=== PATIENT | male | born 1970 | race Asian ===

== ENCOUNTER 2019-10-26 13:37 | Emergency (ER) | payer BC ==
[2019-10-26] MEDS ORDERED: NITROGLYCERIN 0.4 MG TAB SUBL SL ONE (14:58)
[2019-10-26] MEDS ORDERED: SUCRALFATE 1 GM/10 ML ORAL LIQD PO ONE (14:59)
[2019-10-26] MEDS ORDERED: IBUPROFEN 400 MG TAB PO ONE (14:59)
[2019-10-26] MEDS ORDERED: ACETAMINOPHEN 325 MG TAB PO ONE (14:59)
--- NOTE | 2019-10-26 15:00 | Emergency Department Report ---
ED Chest Pain HPI - General Chief Complaint: Chest Pain Stated Complaint: CHEST TIGHTNESS , NUMBNESS LEFT ARM Time Seen by Provider: 10/26/19 14:28 Source: patient, RN notes reviewed Mode of arrival: Ambulatory Limitations: No Limitations - History of Present Illness Initial Comments: The patient is a 49-year-old gentleman, [id number], with no chronic medical conditions that he is aware of, who does not have a local primary care doctor. He does not take any prescription medications. There is no family history of heart disease or pulmonary embolism that he is aware of. He presents to the ER with complaints of left-sided chest pressure, left posterior thoracic pressure, and left forearm numbness. The forearm numbness is nontraumatic, and started 1 week ago. It starts in the left elbow, and moves distally. It is not exertional. It is not related to trauma. There is no extremity weakness. There are no additional neurologic complaints. Last night, he developed left- sided chest pressure, with simultaneous left-sided neck discomfort, and left lateral thorax discomfort. There is no associated vomiting, diaphoresis or shortness of breath. This chest discomfort did not radiate anywhere. It resolved last night. He did not present for emergency medical evaluation last night because he was working. He worked overnight, and came to the ER after finishing his shift. He is not having physical pain at this time. He had as pirin yesterday. Otherwise, no recent aspirin consumption. He denies DVT and pulmonary embolism risk factors. There is currently no complaint of headache, neck pain, chest pain, abdominal pain, shortness of breath, vomiting, diaphoresis, or exertional dyspnea. MD Complaint: chest pain, other -: days(s) Onset: during rest Pain Location: left chest Pain Radiation: none Consistency: now resolved Improves With: nothing Worsens With: nothing Aspirin use within the Past 7 Days: (1) Yes - Related Data On Oral Contraceptives: No Previous Rx's Medication Instructions Recorded Last Taken Type Aspirin 325 mg PO QDAY #30 tablet 10/26/19 Unknown Rx Allergies Allergy/AdvReac Type Severity Reaction Status Date / Time No Known Allergies Allergy Unverified 10/26/19 13:41 Heart Score - HEART Score History: Slightly suspicious EKG: Non-specific Age: 45-65 Risk factors: 1-2 risk factors Troponin: < normal limit HEART Score: 3 - Critical Actions Critical Actions: 4-6 pts:12-16.6% risk of adverse cardiac event. Should be admitted ED Review of Systems ROS: Stated complaint: CHEST TIGHTNESS , NUMBNESS LEFT ARM Other details as noted in HPI Constitutional: denies: diaphoresis, fever Eyes: as per HPI ENT: as per HPI Respiratory: denies: cough, shortness of breath Cardiovascular: chest pain Gastrointestinal: denies: nausea, vomiting Genitourinary: as per HPI Musculoskeletal: as per HPI Skin: as per HPI Neurological: as per HPI, paresthesias Psychiatric: as per HPI Hematological/Lymphatic: as per HPI ED Past Medical Hx - Past Medical History Previous Medical History?: No - Surgical History Past Surgical History?: No - Social History Smoking Status: Current Some Day Smoker Substance Use Type: Alcohol - Medications Home Medications: Home Medications Medication Instructions Recorded Confirmed Last Taken Type Aspirin 325 mg PO QDAY #30 tablet 10/26/19 Unknown Rx ED Physical Exam - General Limitations: No Limitations General appearance: alert, in no apparent distress - Head Head exam: Present: atraumatic, normocephalic - Eye Eye exam: Present: normal appearance, EOMI. Absent: nystagmus - ENT ENT exam: Present: normal exam, normal orophraynx, mucous membranes moist, normal external ear exam - Neck Neck exam: Present: normal inspection, full ROM. Absent: tenderness, meningismus - Respiratory Respiratory exam: Present: normal lung sounds bilaterally. Absent: respiratory distress - Cardiovascular Cardiovascular Exam: Present: regular rate, normal rhythm, normal heart sounds. Absent: bradycardia, tachycardia, irregular rhythm, systolic murmur, diastolic murmur, rubs, gallop - GI/Abdominal GI/Abdominal exam: Present: soft, normal bowel sounds. Absent: distended, tenderness, guarding, rebound, rigid, pulsatile mass - Rectal Rectal exam: Present: deferred - Extremities Exam Extremities exam: Present: normal inspection, full ROM, other (2+ pulses noted in the bilateral upper and lower extremities. There is no palpable cord. negative Homans sign. Muscular compartments are soft. The pelvis is stable.). Absent: pedal edema, calf tenderness - Back Exam Back exam: Present: normal inspection, full ROM. Absent: tenderness, CVA tenderness (R), CVA tenderness (L), paraspinal tenderness, vertebral tenderness - Neurological Exam Neurological exam: Present: alert, oriented X3, normal gait, other (There is no facial droop. The tongue is midline. Extraocular movements are intact bilaterally. There is 5 out of 5 strength in bilateral upper and lower extremities. Sensation is intact to light touch bilateral upper and lower extremities. There is a normal gait.). Absent: motor sensory deficit - Psychiatric Psychiatric exam: Present: normal affect, normal mood - Skin Skin exam: Present: warm, dry, intact, normal color. Absent: rash ED Course Vital Signs 10/26/19 10/26/19 10/26/19 14:30 15:29 15:56 Temperature 98.0 F Pulse Rate 89 91 H 86 Respiratory 10 L 17 Rate Blood Pressure 163/99 Blood Pressure 173/94 161/94 [Left] O2 Sat by Pulse 99 97 Oximetry 10/26/19 17:59 Temperature Pulse Rate 84 Respiratory 15 Rate Blood Pressure Blood Pressure 161/104 [Left] O2 Sat by Pulse 97 Oximetry - Reevaluation(s) Reevaluation #1: 10/26/19 16:02 Differential diagnosis, including but not limited to: GERD, gastritis, hiatal hernia, muscular pain, stable angina, pneumonia, coronary artery disease, pulmonary embolism Assessment and plan: 49-year-old gentleman, who is not currently tachycardic, tachypneic or hypoxic, who endorses no DVT or pulmonary embolism risk factors, with a GCS of 15, equal pulses in the upper and lower extremities, unremarkable x-ray of the chest (unlikely to be aortic disease) with resolved chest discomfort, and 1 week of left forearm numbness. Patient at low risk for major adverse cardiac event as per heart score, and DARIA score. He has no pain or symptoms at this time. Check EKG x2, troponin x2, screening laboratory studies, treat if pain arises, and reassess. Reevaluation #2: 10/26/19 18:00 D-dimer negative. Troponin negative. Laboratory studies unremarkable. EKG unchanged x2. Patient remains symptom-free. Updated patient on results and plan of care. As per this hospital and institutions policy and protocol, given low risk for major adverse cardiac event as per heart score, his contact information is transmitted through secure means through [facility], who should be able to arrange close outpatient follow-up. Explained this to patient Reevaluation #3: 10/26/19 19:42 Troponin negative x2. EKG unchanged x2. Patient resting comfortably for hours, and in no acute distress. He has not endorsed physical pain since I have reevaluated him multiple times. He is suitable to follow-up with an outpatient primary care doctor or machine former to complete an outpatient cardiac risk ratification. DARIA score - Daria Score Age > 65: (0) No Aspirin use within the Past 7 Days: (1) Yes 3 or more CAD Risk Factors: (0) No 2 or more Angina events in past 24 hrs: (0) No Known CAD with more than 50% Stenosis: (0) No Elevated Cardiac Markers: (0) No ST Deviation Greater than 0.5mm: (0) No DARIA Score: 1 ED Medical Decision Making - Lab Data Result diagrams: 10/26/19 16:00 10/26/19 16:00 Vital Signs 10/26/19 10/26/19 10/26/19 14:30 15:29 15:56 Temperature 98.0 F Pulse Rate 89 91 H 86 Respiratory 10 L 17 Rate Blood Pressure 163/99 Blood Pressure 173/94 161/94 [Left] O2 Sat by Pulse 99 97 Oximetry Vital Signs 10/26/19 10/26/19 10/26/19 14:30 15:29 15:56 Temperature 98.0 F Pulse Rate 89 91 H 86 Respiratory 10 L 17 Rate Blood Pressure 163/99 Blood Pressure 173/94 161/94 [Left] O2 Sat by Pulse 99 97 Oximetry Lab Results 10/26/19 10/26/19 10/26/19 Range/Units 16:00 16:00 16:00 WBC 4.7 (4.5-11.0) K/mm3 RBC 4.81 (3.65-5.03) M/mm3 Hgb 14.5 (11.8-15.2) gm/dl Hct 43.3 (35.5-45.6) % MCV 90 (84-94) fl MCH 30 (28-32) pg MCHC 34 (32-34) % RDW 13.3 (13.2-15.2) % Plt Count 157 (140-440) K/mm3 Lymph % (Auto) 27.5 (13.4-35.0) % [place] % (Auto) 6.3 (0.0-7.3) % Eos % (Auto) 1.5 (0.0-4.3) % Baso % (Auto) 0.6 (0.0-1.8) % Lymph # 1.3 (1.2-5.4) K/mm3 [place] # 0.3 (0.0-0.8) K/mm3 Eos # 0.1 (0.0-0.4) K/mm3 Baso # 0.0 (0.0-0.1) K/mm3 Seg Neutrophils % 64.1 (40.0-70.0) % Seg Neutrophils # 3.0 (1.8-7.7) K/mm3 PT 13.5 (12.2-14.9) Sec. INR 1.02 (0.87-1.13) APTT 20.0 L (24.2-36.6) Sec. D-Dimer 135.00 (0-234) ng/mlDDU Sodium 135 L (137-145) mmol/L Potassium 4.5 (3.6-5.0) mmol/L Chloride 96.4 L (98-107) mmol/L Carbon Dioxide 27 (22-30) mmol/L Anion Gap 16 mmol/L BUN 9 (9-20) mg/dL Creatinine 0.6 L (0.8-1.5) mg/dL Estimated GFR > 60 ml/min BUN/Creatinine Ratio 15 % Glucose 282 H (75-100) mg/dL Calcium 9.7 (8.4-10.2) mg/dL Total Bilirubin (0.1-1.2) mg/dL Direct Bilirubin (0-0.2) mg/dL Indirect Bilirubin mg/dL AST (5-40) units/L ALT (7-56) units/L Alkaline Phosphatase (35-129) units/L Troponin T (0.00-0.029) ng/mL Total Protein (6.3-8.2) g/dL Albumin (3.9-5) g/dL Albumin/Globulin Ratio % Lipase (13-60) units/L /24/20 Range/Units 16:00 WBC (4.5-11.0) K/mm3 RBC (3.65-5.03) M/mm3 Hgb (11.8-15.2) gm/dl Hct (35.5-45.6) % MCV (84-94) fl MCH (28-32) pg MCHC (32-34) % RDW (13.2-15.2) % Plt Count (140-440) K/mm3 Lymph % (Auto) (13.4-35.0) % [place] % (Auto) (0.0-7.3) % Eos % (Auto) (0.0-4.3) % Baso % (Auto) (0.0-1.8) % Lymph # (1.2-5.4) K/mm3 [place] # (0.0-0.8) K/mm3 Eos # (0.0-0.4) K/mm3 Baso # (0.0-0.1) K/mm3 Seg Neutrophils % (40.0-70.0) % Seg Neutrophils # (1.8-7.7) K/mm3 PT (12.2-14.9) Sec. INR (0.87-1.13) APTT (24.2-36.6) Sec. D-Dimer (0-234) ng/mlDDU Sodium (137-145) mmol/L Potassium (3.6-5.0) mmol/L Chloride (98-107) mmol/L Carbon Dioxide (22-30) mmol/L Anion Gap mmol/L BUN (9-20) mg/dL Creatinine (0.8-1.5) mg/dL Estimated GFR ml/min BUN/Creatinine Ratio % Glucose (75-100) mg/dL Calcium (8.4-10.2) mg/dL Total Bilirubin 0.60 (0.1-1.2) mg/dL Direct Bilirubin < 0.2 (0-0.2) mg/dL Indirect Bilirubin 0.4 mg/dL AST 7 (5-40) units/L ALT 10 (7-56) units/L Alkaline Phosphatase 85 (35-129) units/L Troponin T < 0.010 (0.00-0.029) ng/mL Total Protein 6.0 L (6.3-8.2) g/dL Albumin 4.0 (3.9-5) g/dL Albumin/Globulin Ratio 2.0 % Lipase 8 L (13-60) units/L - EKG Data -: EKG Interpreted by Mo EKG shows normal: sinus rhythm Rate: normal - EKG Data When compared to previous EKG there are: previous EKG unavailable 10/26/19 16:02 There is no prior EKG available for comparison. Sinus rhythm, left axis deviation, borderline left anterior fascicular block, motion artifact, intervals within normal limits, the EKG is abnormal, there is no prior for comparison, the EKG is not a STEMI - Radiology Data Radiology results: report reviewed, image reviewed CHEST 2 VIEWS INDICATION / CLINICAL INFORMATION: Chest Pain. COMPARISON: None available. FINDINGS: SUPPORT DEVICES: None. HEART / MEDIASTINUM: The heart size and pulmonary vasculature are normal. The aorta is normal in caliber. LUNGS / PLEURA: No significant pulmonary or pleural abnormality. No pneumothorax. ADDITIONAL FINDINGS: No significant additional findings. IMPRESSION: No acute findings. Signer Name: Elfego Nicolas MD Signed: 10/26/2019 2:40 PM Workstation Name: [id number] Critical care attestation.: If time is entered above; I have spent that time in minutes in the direct care of this critically ill patient, excluding procedure time. ED Disposition Clinical Impression: Elevated blood pressure reading, History of chest pain, Arm paresthesia, left Disposition: DC-01 TO HOME OR SELFCARE Is pt being admited?: No Does the pt Need Aspirin: No Condition: Stable Additional Instructions: Rest, avoid heavy lifting, and avoid strenuous physical activities. Recommend weight loss, exercise as tolerated, avoidance of caffeine, energy drinks, sugary drinks, and consumption of plenty of fiber, vegetables, and lean protein. Follow-up with a primary care doctor or machine former within the next 3 to 5 days. Take the aspirin as directed, and avoid consumption of heavy and/or spicy foods. Please return to the emergency room right away with new, worsened or different symptoms, or symptoms not present on the initial emergency room evaluation. Referrals: MALDONADO DE LA TORRE MD [Staff Physician] - 3-5 Days [facility] [Provider Group] - 3-5 Days [facility] [Provider Group] - 3-5 Days [facility] [Provider Group] - 3-5 Days
[2019-10-26] MEDS: FAMOTIDINE 20 MG TAB PO ONE ×3 (15:30→15:32)
[2019-10-26] MEDS: ALUM-MAG HYDROXIDE-SIMETHICONE 200-200-20MG/5ML ORAL LIQD 30 ML PO ONE (15:31)
--- NOTE | 2019-10-26 15:44 | XRay Report ---
CHEST 2 VIEWS INDICATION / CLINICAL INFORMATION: Chest Pain. COMPARISON: None available. FINDINGS: SUPPORT DEVICES: None. HEART / MEDIASTINUM: The heart size and pulmonary vasculature are normal. The aorta is normal in min woody. LUNGS / PLEURA: No significant pulmonary or pleural abnormality. No pneumothorax. ADDITIONAL FINDINGS: No significant additional findings. IMPRESSION: No acute findings. Signer Name: Elfego Nicolas MD Signed: 10/26/2019 3:40 PM Workstation Name: [id number]
[2019-10-26 16:50] LABS: Basophils % (Auto) 0.6 % (0.0-1.8); Eosinophils # (Auto) 0.1 K/mm3 (0.0-0.4); Eosinophils % (Auto) 1.5 % (0.0-4.3); Hematocrit 43.3 % (35.5-45.6); Hemoglobin 14.5 gm/dl (11.8-15.2); Lymphocytes # (Auto) 1.3 K/mm3 (1.2-5.4); Lymphocytes % (Auto) 27.5 % (13.4-35.0); Mean Corpuscular HGB Conc 34 % (32-34); Mean Corpuscular Volume 90 fl (84-94); Monocytes # (Auto) 0.3 K/mm3 (0.0-0.8); Monocytes % (Auto) 6.3 % (0.0-7.3); Platelet Count 157 K/mm3 (140-440); Red Blood Count 4.81 M/mm3 (3.65-5.03); Red Cell Distribution Width 13.3 % (13.2-15.2)
[2019-10-26 17:13] LABS: BUN/Creatinine Ratio 15; Blood Urea Nitrogen 9 mg/dL (9-20); Calcium 9.7 mg/dL (8.4-10.2); Hemolysis Index 3; INR 1.02 (0.87-1.13)
[2019-10-26 17:17] LABS: Alanine Aminotransferase 10 units/L (7-56)
[2019-10-26 17:19] LABS: Bilirubin,Direct < 0.2 mg/dL (0-0.2)
[2019-10-26 22:06] VITALS: BP 147/93
== END 2019-10-26 22:06 | disposition home or self-care (01) ==
LOC: ED 13:37
DX: R07.89 Other chest pain (principal); R20.0 Anesthesia of skin; F17.200 Nicotine dependence, unspecified, uncomplicated; R03.0 Elevated blood-pressure reading, without diagnosis of hypertension
CPT/HCPCS: 36415; 71046; 80048; 80076; 83690; 84484; 85025; 85379; 85610; 85730; 93005; 93010; 99284

== ENCOUNTER 2019-12-31 19:12 | Observation (INO) | payer BC ==
[2019-12-31 20:08] LABS: Basophils % (Auto) 0.9 % (0.0-1.8); Eosinophils # (Auto) 0.1 K/mm3 (0.0-0.4); Hematocrit 45.3 % (35.5-45.6); Hemoglobin 15.4 gm/dl (11.8-15.2); Lymphocytes # (Auto) 1.5 K/mm3 (1.2-5.4); Lymphocytes % (Auto) 36.5 % (13.4-35.0); Mean Corpuscular HGB Conc 34 % (32-34); Mean Corpuscular Volume 91 fl (84-94); Monocytes # (Auto) 0.3 K/mm3 (0.0-0.8); Monocytes % (Auto) 7.8 % (0.0-7.3); Platelet Count 183 K/mm3 (140-440)
[2019-12-31 20:24] LABS: Alanine Aminotransferase 14 units/L (7-56); Albumin 4.4 g/dL (3.9-5); BUN/Creatinine Ratio 17; Blood Urea Nitrogen 12 mg/dL (9-20); Calcium 9.6 mg/dL (8.4-10.2); Hemolysis Index 20
--- NOTE | 2019-12-31 20:25 | Emergency Department Report ---
ED Neuro Deficit HPI - General Chief Complaint: Neuro Symptoms/Deficit Stated Complaint: NUMBNESS LEFT SIDE Time Seen by Provider: 12/31/19 20:19 Source: patient Mode of arrival: Ambulatory Limitations: No Limitations - History of Present Illness Initial Comments: Mr. Hernandez is a 49-year-old male with history of without significant past medical history who presents with sudden onset of left-sided numbness at 6 PM. Patient initially felt left leg numbness. Numbness then involve left face left arm. Sensation has returned. He denies paralysis or trouble with speech. He denies gait disturbance. He has not seen a physician in 5 to 10 years. He was recently evaluated earlier this year for chest pain in the emergency department. He was told to take aspirin for the next 30 days. Mr. Hernandez does smoke tobacco. He drinks a sixpack of beer daily. He drinks a sixpack of beer today. 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 Mother has history of diabetes. Father had a stroke 2 years ago. -: Sudden, This evening (6 PM) Location: left face, left arm, left leg History of same: No Place: home, outdoors Severity: mild Improves With: time Worsens With: none On Anticoagulants: No Context: sudden onset Associated Symptoms: denies other symptoms - Related Data Home Medications: Previous Rx's Medication Instructions Recorded Last Taken Type Aspirin 325 mg PO QDAY #30 tablet 10/26/19 Unknown Rx Allergies/Adverse Reactions: Allergies Allergy/AdvReac Type Severity Reaction Status Date / Time No Known Allergies Allergy Unverified 10/26/19 13:41 ED Review of Systems ROS: Stated complaint: NUMBNESS LEFT SIDE Other details as noted in HPI Comment: All other systems reviewed and negative Constitutional: denies: fever, malaise Respiratory: denies: cough, shortness of breath Cardiovascular: denies: chest pain Psychiatric: depression ED Past Medical Hx - Past Medical History Previous Medical History?: No - Surgical History Past Surgical History?: Yes Additional Surgical History: Back - Social History Smoking Status: Current Some Day Smoker Substance Use Type: Alcohol - Medications Home Medications: Home Medications Medication Instructions Recorded Confirmed Last Taken Type Aspirin 325 mg PO QDAY #30 tablet 10/26/19 Unknown Rx ED Neuro Physical Exam - General Limitations: No Limitations General appearance: alert, in no apparent distress Suspected Stroke: Yes - Head Head exam: Present: atraumatic, normocephalic - Eye Eye exam: Present: normal appearance - ENT ENT exam: Present: mucous membranes moist - Neck Neck exam: Present: normal inspection, full ROM - Respiratory Respiratory exam: Present: normal lung sounds bilaterally. Absent: respiratory distress, wheezes, rales, rhonchi - Cardiovascular Cardiovascular Exam: Present: regular rate, normal rhythm, normal heart sounds. Absent: systolic murmur, diastolic murmur, rubs, gallop - GI/Abdominal GI/Abdominal exam: Present: soft, normal bowel sounds. Absent: distended, tenderness, guarding, rebound - Rectal Rectal exam: Present: deferred - Extremities Exam Extremities exam: Present: normal inspection - Back Exam Back exam: Present: normal inspection - Neurological Exam Neurological exam: Present: alert, oriented X3 - NIHSS Assessment Interval: Baseline 1a. Level of Consciousness: alert/keenly responsive 1b. LOC Questions: answers both correctly 1c. LOC Commands: performs tasks correctly 2. Best Gaze: normal 3. Visual: no visual loss 4. Facial Palsy: normal symmetrical movement 5b. Motor Arm Right: no drift 5a. Motor Arm Left: no drift 6a. Motor Leg Left: no drift 6b. Motor Leg Right: no drift 7. Limb Ataxia: absent 8. Sensory: normal 9. Best Language: no aphasia 10. Dysarthria: normal 11. Extinction/Inattention: no abnormality Total Score: 0 Stroke Severity: No Stroke Symptoms - Psychiatric Psychiatric exam: Present: normal affect, normal mood - Skin Skin exam: Present: warm, dry, intact, normal color. Absent: rash ED Course Vital Signs 12/31/19 12/31/19 12/31/19 19:33 20:12 20:16 Temperature 99.3 F Pulse Rate 116 H 113 H 115 H Respiratory 20 10 L 12 Rate Blood Pressure 165/104 160/96 O2 Sat by Pulse 95 92 96 Oximetry 12/31/19 12/31/19 20:30 20:46 Temperature Pulse Rate 108 H 105 H Respiratory 16 17 Rate Blood Pressure 160/96 140/97 O2 Sat by Pulse 97 96 Oximetry - Lab Data Result diagrams: 12/31/19 19:49 12/31/19 19:49 Lab Results 12/31/19 12/31/19 12/31/19 Range/Units 19:49 19:49 20:22 WBC 4.0 L (4.5-11.0) K/mm3 RBC 5.00 (3.65-5.03) M/mm3 Hgb 15.4 H (11.8-15.2) gm/dl Hct 45.3 (35.5-45.6) % MCV 91 (84-94) fl MCH 31 (28-32) pg MCHC 34 (32-34) % RDW 13.0 L (13.2-15.2) % Plt Count 183 (140-440) K/mm3 Lymph % (Auto) 36.5 H (13.4-35.0) % [place] % (Auto) 7.8 H (0.0-7.3) % Eos % (Auto) 3.0 (0.0-4.3) % Baso % (Auto) 0.9 (0.0-1.8) % Lymph # 1.5 (1.2-5.4) K/mm3 [place] # 0.3 (0.0-0.8) K/mm3 Eos # 0.1 (0.0-0.4) K/mm3 Baso # 0.0 (0.0-0.1) K/mm3 Seg Neutrophils % 51.8 (40.0-70.0) % Seg Neutrophils # 2.1 (1.8-7.7) K/mm3 PT 12.8 (12.2-14.9) Sec. INR 0.95 (0.87-1.13) APTT 25.1 (24.2-36.6) Sec. Thrombin Time 14.3 L (15.1-19.6) Sec. Sodium 136 L (137-145) mmol/L Potassium 4.8 (3.6-5.0) mmol/L Chloride 93.5 L (98-107) mmol/L Carbon Dioxide 28 (22-30) mmol/L Anion Gap 19 mmol/L BUN 12 (9-20) mg/dL Creatinine 0.7 L (0.8-1.5) mg/dL Estimated GFR > 60 ml/min BUN/Creatinine Ratio 17 % Glucose 447 H (75-100) mg/dL Calcium 9.6 (8.4-10.2) mg/dL Total Bilirubin 0.30 (0.1-1.2) mg/dL AST 12 (5-40) units/L ALT 14 (7-56) units/L Alkaline Phosphatase 99 (35-129) units/L Troponin T (0.00-0.029) ng/mL Total Protein 6.6 (6.3-8.2) g/dL Albumin 4.4 (3.9-5) g/dL Albumin/Globulin Ratio 2.0 % Plasma/Serum Alcohol (0-0.07) % 12/31/19 12/31/19 Range/Units 20:22 20:22 WBC (4.5-11.0) K/mm3 RBC (3.65-5.03) M/mm3 Hgb (11.8-15.2) gm/dl Hct (35.5-45.6) % MCV (84-94) fl MCH (28-32) pg MCHC (32-34) % RDW (13.2-15.2) % Plt Count (140-440) K/mm3 Lymph % (Auto) (13.4-35.0) % [place] % (Auto) (0.0-7.3) % Eos % (Auto) (0.0-4.3) % Baso % (Auto) (0.0-1.8) % Lymph # (1.2-5.4) K/mm3 [place] # (0.0-0.8) K/mm3 Eos # (0.0-0.4) K/mm3 Baso # (0.0-0.1) K/mm3 Seg Neutrophils % (40.0-70.0) % Seg Neutrophils # (1.8-7.7) K/mm3 PT (12.2-14.9) Sec. INR (0.87-1.13) APTT (24.2-36.6) Sec. Thrombin Time (15.1-19.6) Sec. Sodium (137-145) mmol/L Potassium (3.6-5.0) mmol/L Chloride (98-107) mmol/L Carbon Dioxide (22-30) mmol/L Anion Gap mmol/L BUN (9-20) mg/dL Creatinine (0.8-1.5) mg/dL Estimated GFR ml/min BUN/Creatinine Ratio % Glucose (75-100) mg/dL Calcium (8.4-10.2) mg/dL Total Bilirubin (0.1-1.2) mg/dL AST (5-40) units/L ALT (7-56) units/L Alkaline Phosphatase (35-129) units/L Troponin T < 0.010 (0.00-0.029) ng/mL Total Protein (6.3-8.2) g/dL Albumin (3.9-5) g/dL Albumin/Globulin Ratio % Plasma/Serum Alcohol < 0.01 (0-0.07) % Laboratory Results - last 24 hr 12/31/19 12/31/19 12/31/19 19:49 19:49 20:22 WBC 4.0 L RBC 5.00 Hgb 15.4 H Hct 45.3 MCV 91 MCH 31 MCHC 34 RDW 13.0 L Plt Count 183 Lymph % (Auto) 36.5 H [place] % (Auto) 7.8 H Eos % (Auto) 3.0 Baso % (Auto) 0.9 Lymph # 1.5 [place] # 0.3 Eos # 0.1 Baso # 0.0 Seg Neutrophils % 51.8 Seg Neutrophils # 2.1 PT 12.8 INR 0.95 APTT 25.1 Thrombin Time 14.3 L Sodium 136 L Potassium 4.8 Chloride 93.5 L Carbon Dioxide 28 Anion Gap 19 BUN 12 Creatinine 0.7 L Estimated GFR > 60 BUN/Creatinine Ratio 17 Glucose 447 H Calcium 9.6 Total Bilirubin 0.30 AST 12 ALT 14 Alkaline Phosphatase 99 Troponin T Total Protein 6.6 Albumin 4.4 Albumin/Globulin Ratio 2.0 Plasma/Serum Alcohol 12/31/19 12/31/19 20:22 20:22 WBC RBC Hgb Hct MCV MCH MCHC RDW Plt Count Lymph % (Auto) [place] % (Auto) Eos % (Auto) Baso % (Auto) Lymph # [place] # Eos # Baso # Seg Neutrophils % Seg Neutrophils # PT INR APTT Thrombin Time Sodium Potassium Chloride Carbon Dioxide Anion Gap BUN Creatinine Estimated GFR BUN/Creatinine Ratio Glucose Calcium Total Bilirubin AST ALT Alkaline Phosphatase Troponin T < 0.010 Total Protein Albumin Albumin/Globulin Ratio Plasma/Serum Alcohol < 0.01 - EKG Data EKG shows normal: sinus rhythm, intervals, ST-T waves Rate: normal Interpretation: other (Inferior Q waves leads III aVF) 12/31/19 20:58 EKG obtained 2049 Normal sinus rhythm rate 100 bpm normal axis normal intervals no ST-T signs ischemia - Radiology Data Radiology results: report reviewed CT head: No acute findings AP portable chest: No acute findings - Medical Decision Making TIA: Last known normal 6 PM. TPA not indicated due to rapidly resolve symptoms. Ms. Hernandez will be admitted to the hospitalist service. Aspirin initiated in the emergency department. CBC chemistry PT blood alcohol level all within normal limits. Critical care attestation.: If time is entered above; I have spent that time in minutes in the direct care of this critically ill patient, excluding procedure time. ED Disposition Clinical Impression: Transient ischemic attack Disposition: DC09 OP ADMIT IP TO THIS HOSP Is pt being admited?: Yes Does the pt Need Aspirin: No Condition: Stable
--- NOTE | 2019-12-31 20:49 | XRay Report ---
CHEST 1 VIEW INDICATION / CLINICAL INFORMATION: numbness stroke symptoms. COMPARISON: 10/26/2019 FINDINGS: SUPPORT DEVICES: None. HEART / MEDIASTINUM: No significant abnormality. LUNGS / PLEURA: No significant pulmonary or pleural abnormality. No pneumothorax. ADDITIONAL FINDINGS: No significant additional findings. IMPRESSION: 1. No acute findings. Signer Name: Edgardo Mendoza MD Signed: 12/31/2019 8:45 PM Workstation Name: [id number]
[2019-12-31 20:52] LABS: INR 0.95 (0.87-1.13); Partial Thromboplastin Time 25.1 Sec. (24.2-36.6)
[2019-12-31 20:53] LABS: Thrombin Time 14.3 Sec. (15.1-19.6)
--- NOTE | 2019-12-31 21:24 | Cat Scan Report ---
CT HEAD WITHOUT CONTRAST INDICATION / CLINICAL INFORMATION: Stroke symptoms. TECHNIQUE: All CT scans at this location are performed using CT dose reduction for ALARA by means of automated e xposure control. COMPARISON: None available. FINDINGS: HEMORRHAGE: No evidence of intracranial hemorrhage or extra-axial fluid collection. EXTRA-AXIAL SPACES: Cortical sulci, sylvian fissures and basilar cisterns have an unremarkable appear ance. VENTRICULAR SYSTEM: The ventricular system is of normal size and configuration. CEREBRAL PARENCHYMA: No areas of abnormal brain parenchymal attenuation are identified. There is no i ndication of recent infarction. MIDLINE SHIFT OR HERNIATION: There is no mass effect. CEREBELLUM / BRAINSTEM: Brainstem and cerebellum have an unremarkable appearance. INTRACRANIAL VESSELS:No abnormalities are identified on this noncontrast head CT. ORBITS: visualized portions of the orbits have an unremarkable appearance. SOFT TISSUES of HEAD: No significant abnormality. CALVARIUM: Evaluation of bone windows reveals no abnormalities. PARANASAL SINUSES / MASTOID AIR CELLS: Paranasal sinuses are free from inflammatory mucosal disease. Mastoid air cells are normally pneumatized. ADDITIONAL FINDINGS: None. IMPRESSION: 1. No intracranial abnormality on head CT without contrast.. Signer Name: Georgi Jimenez MD Signed: 12/31/2019 9:20 PM Workstation Name: [id number]
[2019-12-31] MEDS ORDERED: ASPIRIN 81 MG TAB CHEW PO ONE (21:57)
[2019-12-31] MEDS ORDERED: ONDANSETRON 4 MG/2 ML INJ IV PRN ×2 (22:39)
[2019-12-31] MEDS ORDERED: MAGNESIUM HYDROXIDE (MOM) ORAL LIQD UDC PO PRN ×2 (22:39)
[2019-12-31] MEDS ORDERED: ACETAMINOPHEN 325 MG TAB PO PRN ×2 (22:39)
[2019-12-31] MEDS ORDERED: PROMETHAZINE 25 MG RECT SUPP PR PRN (22:39)
[2019-12-31] MEDS ORDERED: METOCLOPRAMIDE 10 MG TAB PO PRN (22:39)
[2019-12-31 22:47] LABS: Bilirubin,Urine NEG (Negative); Blood,Urine NEG (Negative); Color,Urine Straw (Yellow); Protein,Urine <15 mg/dL mg/dL (Negative); Urobilinogen,Urine < 2.0 mg/dL (<2.0)
[2019-12-31 22:48] LABS: Amphetamine Screen,Urine PRESUMPTIVE NEGATIVE; Benzodiazepines Screen,Urine PRESUMPTIVE NEGATIVE; Cannabinoid Screen,Urine PRESUMPTIVE NEGATIVE; Cocaine Screen,Urine PRESUMPTIVE NEGATIVE; Methadone Screen,Urine PRESUMPTIVE NEGATIVE; Opiate Screen,Urine PRESUMPTIVE NEGATIVE
--- NOTE | 2019-12-31 22:53 | History and Physical Report ---
History of Present Illness Date of examination: 12/31/19 Date of admission: 12/31/19 21:58 Chief complaint: Left sided weakness and numbness History of present illness: 49-year-old male with no significant past medical history presents to the emergency room today complaining of left-sided numbness which started a few hours prior to reporting to the emergency room. Numbness and tingling was said to have started on the left leg but later started having similar feelings on the left upper extremity and left side of his face. He denies any headache or dizziness, denies any difficulty with speech and denies any difficulty with his gait.. He denies any chest pain or shortness of breath. Patient has not seen a primary care physician in over 5 years however he was seen earlier in the year in the emergency room for chest pain I was encouraged to start on a daily aspirin for the next 30 days. Work-up in the emergency room was unremarkable except for hyperglycemia. Patient however denies being diabetic. He has a family history of diabetes mellitus. Past History Past Medical History: No medical history Past Surgical History: Other (Back Surtgery) Social history: smoking (Occasional smoking), alcohol abuse (Occasional alcohol) Family history: no significant family history, diabetes (Mother had D/mellitus), stroke (Father had stroke) Medications and Allergies Allergies Allergy/AdvReac Type Severity Reaction Status Date / Time No Known Allergies Allergy Unverified 10/26/19 13:41 Home Medications Medication Instructions Recorded Confirmed Last Taken Type Aspirin 325 mg PO QDAY #30 tablet 10/26/19 Unknown Rx Review of Systems Constitutional: no fever, no chills Cardiovascular: no chest pain, no palpitations Respiratory: no cough, no shortness of breath Gastrointestinal: no abdominal pain, no nausea, no vomiting, no diarrhea Genitourinary Male: no dysuria, no hematuria, no flank pain Musculoskeletal: no neck pain, no low back pain Integumentary: no rash, no pruritis Neurological: no headaches, no confusion Psychiatric: no anxiety, no depression Exam - Constitutional Vitals: Temp Pulse Resp BP Pulse Ox 99.3 F 96 H 15 137/96 98 12/31/19 19:33 12/31/19 22:16 12/31/19 22:16 12/31/19 22:16 12/31/19 22:16 General appearance: Present: no acute distress, well-nourished - EENT Eyes: Present: PERRL, EOM intact ENT: hearing intact, clear oral mucosa, dentition normal - Neck Neck: Present: supple, normal ROM - Respiratory Respiratory effort: normal Respiratory: bilateral: CTA - Cardiovascular Rhythm: regular Heart Sounds: Present: S1 & S2 - Extremities Extremities: no ischemia, pulses intact, pulses symmetrical, No edema, Full ROM Peripheral Pulses: within normal limits - Abdominal General gastrointestinal: Present: soft, non-tender, non-distended - Integumentary Integumentary: Present: clear, warm, dry - Musculoskeletal Musculoskeletal: strength equal bilaterally - Psychiatric Psychiatric: appropriate mood/affect, intact judgment & insight, cooperative - Neurologic Neurologic: CNII-XII intact, moves all extremities HEART Score - HEART Score Troponin: Troponin T < 0.010 ng/mL (0.00-0.029) 12/31/19 20:22 Results - Labs CBC & Chem 7: 12/31/19 19:49 12/31/19 19:49 Labs: Abnormal lab results 12/31/19 12/31/19 12/31/19 Range/Units 19:49 19:49 20:22 WBC 4.0 L (4.5-11.0) K/mm3 Hgb 15.4 H (11.8-15.2) gm/dl RDW 13.0 L (13.2-15.2) % Lymph % (Auto) 36.5 H (13.4-35.0) % Bell % (Auto) 7.8 H (0.0-7.3) % Thrombin Time 14.3 L (15.1-19.6) Sec. Sodium 136 L (137-145) mmol/L Chloride 93.5 L (98-107) mmol/L Creatinine 0.7 L (0.8-1.5) mg/dL Glucose 447 H (75-100) mg/dL Assessment and Plan - Patient Problems (1) Transient ischemic attack Current Visit: Yes Status: Acute Plan to address problem: Patient admitted and placed on telemetry. Will monitor neurological status. Will place on daily aspirin. We will schedule for carotid Doppler, MRI of the brain. We will request neurology evaluation. (2) Hyperglycemia Current Visit: Yes Status: Acute Plan to address problem: Patient denies being diabetic. Will check hemoglobin A1c. Meanwhile will place patient on sliding scale insulin and also get dietary consult. (3) DVT prophylaxis Current Visit: Yes Status: Acute Plan to address problem: Patient placed on subcutaneous heparin. (4) Full code status Current Visit: Yes Status: Acute
[2020-01-01] MEDS: INSULIN LISPRO 100 UNIT/ML SUB-Q SCH ×4 (01:36→16:00)
[2020-01-01 07:03] LABS: Basophils % (Auto) 0.5 % (0.0-1.8); Eosinophils # (Auto) 0.1 K/mm3 (0.0-0.4); Eosinophils % (Auto) 2.1 % (0.0-4.3); Hematocrit 45.2 % (35.5-45.6); Hemoglobin 15.4 gm/dl (11.8-15.2); Lymphocytes # (Auto) 1.7 K/mm3 (1.2-5.4); Lymphocytes % (Auto) 35.5 % (13.4-35.0); Mean Corpuscular HGB Conc 34 % (32-34); Mean Corpuscular Volume 90 fl (84-94); Monocytes # (Auto) 0.4 K/mm3 (0.0-0.8); Monocytes % (Auto) 7.6 % (0.0-7.3); Platelet Count 187 K/mm3 (140-440); Red Blood Count 5.02 M/mm3 (3.65-5.03)
[2020-01-01 07:16] LABS: INR 0.96 (0.87-1.13)
[2020-01-01 07:33] LABS: BUN/Creatinine Ratio 18; Blood Urea Nitrogen 11 mg/dL (9-20); Calcium 9.7 mg/dL (8.4-10.2); Chol/HDL Ratio 3.61 %; HDL Cholesterol 39 mg/dL (40-59); Hemolysis Index 8; LDL Cholesterol,Direct 95 mg/dL (50-130)
--- NOTE | 2020-01-01 09:30 | Discharge Summary ---
Providers - Providers Date of Admission: 01/01/20 01:23 Attending physician: JULY THOMAS MD 12/31/19 22:39 Consult to Dietitian/Nutrition [CONS] Routine Physician Instructions: Reason For Exam: Reason for Consult: Nutrition Recommendations Reason for Consult: Diet education Consult to Physician [CONS] Routine Comment: Consulting Provider: EDU BAR Physician Instructions: Reason For Exam: TIA R/O CVA Occupational Therapy Evaluate and Treat [CONS] Routine Comment: Reason For Exam: Neuro deficits Physical Therapy Evaluation and Treat [CONS] Routine Comment: Reason For Exam: Neuro deficits 01/01/20 01:44 Consult to Dietitian/Nutrition [CONS] Routine Physician Instructions: Reason For Exam: ELEVATED BLOOD SUGAR. Reason for Consult: Diet education Primary care physician: [employer] Hospitalization Reason for admission: cva Condition: Stable Hospital course: 49-year-old male with no significant past medical history presents to the emergency room today complaining of left-sided numbness which started a few hours prior to reporting to the emergency room. Numbness and tingling was said to have started on the left leg but later started having similar feelings on the left upper extremity and left side of his face. He denies any headache or dizziness, denies any difficulty with speech and denies any difficulty with his gait.. He denies any chest pain or shortness of breath. Patient has not seen a primary care physician in over 5 years however he was seen earlier in the year in the emergency room for chest pain I was encouraged to start on a daily aspirin for the next 30 days. Work-up in the emergency room was unremarkable except for hyperglycemia. Patient however denies being diabetic. He has a family history of diabetes mellitus. MRI showed CVA AND this finding was discussed with the patient. Patient verbalized understanding, reported that the symptoms resolved, He also informs me that he was not compliant with his asa and onlyu Only took ASA for one month and stopped, advised on need to be on ASA for life now. He said he has ASA at home and will take those Start Atorvastatin Start on BP meds- Lisinopril Advised about new diagnosis of DM- Monitor advised to lose weight CVA HTN DIABETES MELLITUS MORBID OBESITY NON COMPLAINT Disposition: TO HOME OR SELFCARE Time spent for discharge: 35 mins Core Measure Documentation - Palliative Care Palliative Care/ Comfort Measures: Not Applicable - Core Measures Any of the following diagnoses?: stroke - Stroke Discharge Requirements Statin for LDL = or >70 mg/dl on DC: Yes Anticoag for atrial fib/atrial flutter: Not Applicable Antithrombotic for ischemic stroke: Yes Exam - Constitutional Vitals: Temp Pulse Resp BP Pulse Ox 98.1 F 92 H 18 150/99 100 01/01/20 08:54 01/01/20 08:54 01/01/20 08:54 01/01/20 08:54 01/01/20 09:01 General appearance: Present: no acute distress, well-nourished - EENT Eyes: Present: PERRL, EOM intact ENT: hearing intact, clear oral mucosa - Neck Neck: Present: supple, normal ROM - Respiratory Respiratory effort: normal Respiratory: bilateral: CTA - Cardiovascular Rhythm: regular Heart Sounds: Present: S1 & S2. Absent: systolic murmur, diastolic murmur - Extremities Extremities: no ischemia, pulses intact, pulses symmetrical, No edema, normal temperature, normal color, Full ROM Peripheral Pulses: within normal limits - Abdominal General gastrointestinal: Present: soft, non-tender, non-distended, normal bowel sounds - Integumentary Integumentary: Present: clear, warm, dry - Musculoskeletal Musculoskeletal: strength equal bilaterally - Psychiatric Psychiatric: appropriate mood/affect, intact judgment & insight, cooperative - Neurologic Neurologic: CNII-XII intact, moves all extremities - Allied Health Allied health notes reviewed: nursing Plan Activity: advance as tolerated Diet: low fat, diabetic Special Instructions: record daily weights, record daily BP diary, record blood sugar diary Follow up with: MARGUERITE SESAY MD [Primary Care Provider] - 7 Days MALDONADO DE LA TORRE MD [Staff Physician] - 7 Days STEFAN VILLA MD [Staff Physician] - 7 Days Forms: Work/School Release Form Prescriptions: AtorvaSTATin [Lipitor] 40 mg PO QHS #30 tablet metFORMIN [Glucophage] 850 mg PO BID #60 tablet lisinopriL [Zestril TAB] 20 mg PO QDAY #30 tablet Other Discharge Orders: Glucometer (Amb) Location: None Selected Glucometer supplies[Amb] Location: None Selected
[2020-01-01] MEDS ORDERED: ASPIRIN 325 MG TAB PO SCH (10:00)
--- NOTE | 2020-01-01 14:06 | Magnetic Resonance Report ---
MRI BRAIN WITHOUT CONTRAST INDICATION / CLINICAL INFORMATION: Graph cerebrovascular accident. Patient reports left-sided numbnes s and paresthesias. TECHNIQUE: Multiplanar, multisequence MR images of the brain were obtained. COMPARISON: Head CT 12/31/2019 FINDINGS: BRAIN / INTRACRANIAL CONTENTS: There is a punctate (4 mm diameter) focus of restricted diffusion in the lateral aspect of the right thalamus. There is a corresponding area of decreased signal intensity on ADC map images. This represe nts a subacute small deep infarction. No additional areas of abnormal brain parenchymal signal intens ity are identified. Ventricles and cortical sulci are normal in size and configuration. There is no mass effect. No evide nce of intracranial hemorrhage or extra-axial fluid collection is seen.. There is no indication of re mote cortical infarction. The brainstem and cerebellum have an unremarkable appearance. CRANIOCERVICAL JUNCTION: No abnormalities are identified at the craniocervical junction. VASCULAR FLOW-VOIDS: Normal flow-voids are present within the major intracranial vessels. ORBITS: The orbits have an unremarkable appearance. SINUSES / MASTOIDS: There is no indication of inflammatory disease in the paranasal sinuses or mastoi d air cells. ADDITIONAL FINDINGS: None. IMPRESSION: 1. 4 mm diameter subacute infarction lateral aspect of right thalamus. Signer Name: Georgi Jimenez MD Signed: 01/01/2020 2:02 PM Workstation Name: [id number]
--- NOTE | 2020-01-01 14:14 | Magnetic Resonance Report ---
MRA HEAD WITHOUT CONTRAST HISTORY: Cerebrovascular accident. Left-sided numbness and paresthesias. COMPARISON: none TECHNIQUE: Routine MRA of the head performed. 3-D/MIP reformats postprocessed. CONTRAST: none FINDINGS: MRA HEAD: Intracranial vertebral arteries: Balanced vertebral arteries both contribute to the basilar artery or igin. Basilar artery: There is an absence of flow related signal between the origins of the superior cerebe llar arteries and posterior cerebral arteries. This may be due to a basilar stenosis or occlusion. Th is is associated with bilateral origin of the posterior cerebral arteries and the decreased marissa iber of the distal basilar artery is likely developmental in etiology based on these findings. Posterior cerebral arteries: Bilaterally symmetrical posterior cerebral arteries are demonstrated. Intracranial internal carotid arteries: No significant abnormality. Anterior cerebral arteries: No significant abnormality. Middle cerebral arteries: No significant abnormality. Additional findings: None. IMPRESSION: 1. Bilateral origin of the posterior cerebral arteries. 2. Marked diminution in caliber of the distal basilar artery between the origins of the superior cere bellar arteries and basilar artery as described above. Signer Name: Georgi Jimenez MD Signed: 01/01/2020 2:10 PM Workstation Name: [id number]
[2020-01-01 15:40] VITALS: BP 158/95
[2020-01-01] MEDS ORDERED: INSULIN GLARGINE 100 UNITS/ML SUB-Q SCH (22:00)
== END 2020-01-01 17:50 | disposition home or self-care (01) ==
LOC: ED 19:12 → 4A 21:58 → UNDOADMOB 21:58 → 4A 01-01 01:23
PROVIDERS: ADMIT Internal Medicine Geriatric Medicine; ATTEND Internal Medicine
DX: G45.9 Transient cerebral ischemic attack, unspecified (principal); R73.9 Hyperglycemia, unspecified; F17.200 Nicotine dependence, unspecified, uncomplicated
CPT/HCPCS: 36415; 70450; 70544; 70551; 71045; 80048; 80053; 80061; 80307; 81001; 82962; 83036; 84484; 85025; 85610; 85670; 85730; 93005; 93306; 96372; 97165; 99285; G0378; 80320; G0480; J1815

== ENCOUNTER 2020-01-03 00:18 | Observation (INO) | payer BC ==
--- NOTE | 2020-01-03 00:59 | Emergency Department Report ---
HPI - General Time Seen by Provider: 01/03/20 00:22 - HPI HPI: This is a 49-year-old male presents to the emergency department with a complaint of left-sided numbness that has been going on for most of the day. The patient was just admitted to this hospital on 12/30 for similar symptoms and was admitted for a transient ischemic attack. Patient had a brain MRI on 12/31 that shows a subacute right thalamic infarct. Patient says that he was feeling better upon discharge home but throughout the day today the patient began having numbness and/or decreased sensation to the left side of his face and body every time he lays down or tries to go to sleep. He denies any headache, vision change, slurred speech, weakness or any other neurological deficits. He has not taken anything for symptoms prior to presentation. Patient has a tobacco smoker and a daily alcohol drinker. ED Past Medical Hx - Past Medical History Hx Congestive Heart Failure: No Hx Diabetes: No Hx Asthma: No Hx COPD: No - Surgical History Additional Surgical History: Back - Social History Smoking Status: Former Smoker - Medications Home Medications: Home Medications Medication Instructions Recorded Confirmed Last Taken Type Aspirin 325 mg PO QDAY #30 tablet 10/26/19 Unknown Rx AtorvaSTATin [Lipitor] 40 mg PO QHS #30 tablet 01/01/20 Unknown Rx lisinopriL [Zestril TAB] 20 mg PO QDAY #30 tablet 01/01/20 Unknown Rx metFORMIN [Glucophage] 850 mg PO BID #60 tablet 01/01/20 Unknown Rx ED Review of Systems ROS: Stated complaint: LT SIDE WEAKNESS Other details as noted in HPI Comment: All other systems reviewed and negative Constitutional: denies: chills, fever Eyes: denies: eye pain, vision change ENT: denies: ear pain, throat pain Respiratory: denies: cough, shortness of breath Cardiovascular: denies: chest pain, palpitations Gastrointestinal: denies: abdominal pain, vomiting Genitourinary: denies: dysuria, discharge Musculoskeletal: denies: back pain, arthralgia Skin: denies: rash, lesions Neurological: numbness. denies: headache, weakness Physical Exam - Physical Exam Physical Exam: GENERAL: The patient is well-developed well-nourished. HENT: Normocephalic. Atraumatic. Patient has moist mucous membranes. EYES: Extraocular motions are intact. Pupils equal reactive to light bilaterally. No nystagmus. NECK: Supple. Trachea is midline. CHEST/LUNGS: Clear to auscultation. There is no respiratory distress noted. HEART/CARDIOVASCULAR: Regular. There is no tachycardia. There is no murmur. ABDOMEN: Abdomen is soft, nontender. Patient has normal bowel sounds. SKIN: Skin is warm and dry. NEURO: The patient is awake, alert, and oriented. The patient is cooperative. There is a left lower extremity drift that does not hit the gurney. There is subjective decrease sensation to the left side of the face and the left leg when compared to the right side. Normal speech. Cranial nerves II through XII grossly intact. No facial asymmetry. MUSCULOSKELETAL: There is no tenderness or deformity. There is no limitation range of motion. There is no evidence of acute injury. ED Medical Decision Making - Lab Data Result diagrams: 01/03/20 00:57 01/03/20 00:57 - Radiology Data Radiology results: report reviewed CT head without contrast INDICATION : Left facial and body numbness. TECHNIQUE: Axial imaging performed from the skull apex through the skull base without the use of contrast. All CT examinations performed at this facility utilize dose modulation, iterative reconstruction or weight-based dosing, when appropriate, to reduce radiation dose to as low as reasonably achievable. COMPARISON: None FINDINGS: No acute intracranial hemorrhage or parenchymal abnormality. Lacunar infarct noted within the right, subacute to chronic. Ventricles are normal in size and appear symmetric. Soft tissues including the orbits appear normal. No acute osseous abnormality. Sinuses and mastoid air cells are clear. IMPRESSION: No acute intracranial abnormality appreciated. Subacute to chronic focal lacunar infarct within the right thalamus. CTA head with intravenous contrast CLINICAL HISTORY: Cerebrovascular accident. Left-sided weakness and numbness. TECHNIQUE: 0.625 mm thick contiguous axial scans were obtained from the skull base to the skull vertex during rapid bolus administration of intravenous contrast material. Multiplanar reconstructions were produced in the coronal and sagittal planes. In addition 3 plane MIP instructions were produced and reviewed for this report. The axial source images and reconstructed images were reviewed for this report. CONTRAST DOSE REPORT: Omnipaque 350: 100 ml administered intravenously. All CT scans at this location are performed using CT dose reduction for ALARA by means of automated exposure control. FINDINGS: Internal carotid arteries:Ba, cavernous, opthalmic, clinoid and supraclinoid segments of the ICAs have an unremarkable appearance. Middle cerebral arteries: Bilaterally symmetrical M1 segments are noted. No abnormalities are seen along the course of the insular or opercular branches of middle cerebral arteries. Anterior cerebral arteries: Symmetrical A1 segments of the anterior cerebral arteries are demonstrated. No abnormalities are seen along the course of the A2 segments and their pericallosal branches. Vertebral arteries: Vertebral arteries are diminutive in size. Both vertebral arteries contribute to the basilar artery origin. Basilar artery:Basilar artery is hy poplastic. This is due in large part due to the presence of origin of both posterior cerebral arteries. Posterior cerebral arteries: origin of the posterior cerebral arteries is noted bilaterally. Hypoplasia or developmental absence of the P1 segments is observed. Posterior cerebral arteries have a normal and symmetrical appearance. Dural sinuses: Dural venous sinuses are well demonstrated on this exam. There is no evidence of dural sinus thrombosis. IMPRESSION: 1. No indication of intracranial stenosis or large vessel occlusion. CTA neck without and with intravenous contrast material CLINICAL HISTORY: left sided weakness/numbness TECHNIQUE: Following acquisition of a timing bolus 0.625 mm thick contiguous axial scans were obtained from aortic arch to the skull base during rapid bolus intravenous contrast infusion. In addition to evaluation of axial source images multiplanar reconstructions were produced and reviewed for this report. 3 plane MIP reconstructions were produced and reviewed. FINDINGS: Thoracic aorta:No abnormalities are identified along the course of the thoracic aorta..The origins of the great vessels have an unremarkable appearance. Brachiocephalic artery, left common carotid artery origin and left subclavian artery all have an unremarkable appearance. Right carotid artery:No abnormalities are seen along the course of the RCCA, at the right carotid bifurcation or along the cervical portions of the JOAQUÍN. Left carotid artery: No abnormalities are noted along the course of the left common carotid artery, at the left carotid bifurcation or along the course of the cervical segments of the LICA. Posterior circulation: Both vertebral arteries are diminutive in size. There is no indication of stenosis along the course of the vertebral arteries. Both vertebral arteries contribute to the basilar artery origin. The degree of stenosis, if any, is determined utilizing NASCET like criteria. In this case there is no indication of hemodynamically significant stenosis at the carotid bifurcations or elsewhere. Evaluation of the nonvascular soft tissue structures reveal no abnormality. There is no indication of cervical lymphadenopathy. No abnormalities are seen along the course of the airway. Visualized portions of t he parotid glands and the submandibular salivary glands have a normal appearance. Thyroid gland has a normal appearance. Evaluation of the lung apices reveals no evidence of lung nodule or infiltrate. Cervical spondylosis is noted. This is most pronounced at the C5-6 level where posterior osteophyte lateralizes to the left contributing to left lateral recess stenosis and mild central canal stenosis. IMPRESSION: 1. No indication of hemodynamically significant stenosis at the carotid bifurcation or elsewhere. - Medical Decision Making This patient presents to the emergency department with the complaint of some left-sided numbness that has been going on throughout the day. On examination he also has a mild left lower extremity drift. A CT scan of the head without contrast shows a subacute right thalamic infarction but no acute process. Labs are mostly unremarkable except for some hyperglycemia but the patient does not appear in diabetic ketoacidosis. A consult was done by the telemedicine neurologist, Dr. Muñiz, who evaluated this patient and gave him a NIH stroke scale of 2. The patient had a had previous resolution of his symptoms prior to discharge from his last visit a few days ago and therefore there is concern that the patient could have an evolution of this previous stroke or possibly a new stroke. The neurologist recommends admission for a repeat MRI. Since the patient does not have any specific last known well time, he is outside of the window for TPA. CT angiography studies were done that did not show any occlusion or thrombus. Vital signs stable throughout her his ED course. Patient has been accepted for admission by the hospitalist, Dr. Gorman. Critical Care Time: No Critical care attestation.: If time is entered above; I have spent that time in minutes in the direct care of this critically ill patient, excluding procedure time. ED Disposition Clinical Impression: Stroke Qualifiers: CVA mechanism: unspecified Qualified Code(s): I63.9 - Cerebral infarction, unsp ecified Disposition: 09 OP ADMIT IP TO THIS HOSP Is pt being admited?: Yes Condition: Serious Time of Disposition: 04:14
[2020-01-03 01:40] LABS: Alanine Aminotransferase 13 units/L (7-56); Albumin 4.2 g/dL (3.9-5); BUN/Creatinine Ratio 18; Blood Urea Nitrogen 11 mg/dL (9-20); Calcium 9.3 mg/dL (8.4-10.2)
--- NOTE | 2020-01-03 01:44 | Cat Scan Report ---
CT head without contrast INDICATION : Left facial and body numbness. TECHNIQUE: Axial imaging performed from the skull apex through the skull base without the use of con trast. All CT examinations performed at this facility utilize dose modulation, iterative reconstruct ion or weight-based dosing, when appropriate, to reduce radiation dose to as low as reasonably achiev able. COMPARISON: None FINDINGS: No acute intracranial hemorrhage or parenchymal abnormality. Lacunar infarct noted within the right, subacute to chronic. Ventricles are normal in size and appear symmetric. Soft tissues in cluding the orbits appear normal. No acute osseous abnormality. Sinuses and mastoid air cells are clear. IMPRESSION: No acute intracranial abnormality appreciated. Subacute to chronic focal lacunar infarct within the right thalamus. Signer Name: Sj Roberts MD Signed: 01/03/2020 1:40 AM Workstation Name: [id number]
[2020-01-03 01:45] LABS: Basophils % (Auto) 0.5 % (0.0-1.8); Eosinophils # (Auto) 0.1 K/mm3 (0.0-0.4); Hematocrit 43.7 % (35.5-45.6); Hemoglobin 14.8 gm/dl (11.8-15.2); Lymphocytes # (Auto) 1.4 K/mm3 (1.2-5.4); Lymphocytes % (Auto) 26.4 % (13.4-35.0); Mean Corpuscular HGB Conc 34 % (32-34); Mean Corpuscular Volume 91 fl (84-94); Monocytes # (Auto) 0.3 K/mm3 (0.0-0.8); Monocytes % (Auto) 5.3 % (0.0-7.3); Platelet Count 164 K/mm3 (140-440); Red Blood Count 4.81 M/mm3 (3.65-5.03); Red Cell Distribution Width 12.9 % (13.2-15.2)
--- NOTE | 2020-01-03 02:31 | Emergency Department Report ---
ED Neuro Deficit HPI - General Chief Complaint: Weakness Stated Complaint: LT SIDE WEAKNESS Time Seen by Provider: 01/03/20 00:22 Source: patient, EMS Mode of arrival: Stretcher Limitations: No Limitations - History of Present Illness Initial Comments: [facility] Tele[facility]urology Consult Services Stat Consult Date of Service: 01/03/2020 01:57:30 Impression: Rule Out Acute Ischemic Stroke Comments/Sign-Out: Patient is a 49 yo male with a recent right thalamic ischemic stroke 12/31/19 with residual right facial and hand paresthesias who p/w recurrence of left sided numbness, transient left leg weakness. MRI brain and MRA brain 12/31 reviewed 4mm subacute right lateral thalamic infarct. 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 No carotid imaging available. Patient has been on ASA since discharge. Concern for possible recurrent stroke, in addition further visualization of possible basilar aa critical stenosis/o cclusion vs congenital variant. Given recent stroke and LNK he is not a candidate for TPA. Rec STAT CTA head and neck Rec repeat MRI brain, if recurrent stroke additional embolic stroke work-up may be required, as well as DAP ASA 325mg in ED. Repeat CTH No ICH Metrics: [facility] Notification Time: 01/03/2020 01:56:06 Stamp Time: 01/03/2020 01:57:30 Callback Response Time: 01/03/2020 01:58:50 Video Start Time: 01/03/2020 02:05:02 Video End Time: 01/03/2020 02:19:52 Our recommendations are outlined below. Recommendations: Antiplatelet Therapy Recommended Imaging Studies: MRI Head Without Contrast Therapies: Physical Therapy, Occupational Therapy, Speech Therapy Assessment When Applicable Disposition: Neurology Follow Up Recommended Sign Out: Discussed with Emergency Department Provider Chief Complaint: left sided numbness History of Present Illness: Patient is a 49 year old Male. Patient is a 49 yo male with a recent right thalamic ischemic stroke 12/31/19 with residual right facial and hand paresthesias who p/w recurrence of left sided numbness, transient left leg weakness. Recurrent symptoms have been present since awakening this AM. He reports that initially symptoms began 12/31/19 after waking up from a nap in the evening at 6pm, with complete left sided numbness. At the time of discharge he had mild left facial and hand tingling. This AM he awoke again with complete left sided numbness. He noticed transient left leg heaviness in the day. Examination: 1A: Level of Consciousness - Alert; keenly responsive + 0 1B: Ask Month and Age - Both Questions Right + 0 1C: Blink Eyes & Squeeze Hands - Performs Both Tasks + 0 2: Test Horizontal Extraocular Movements - Normal + 0 3: Test Visual Gordon - No Visual Loss + 0 4: Test Facial Palsy (Use Grimace if Obtunded) - Normal symmetry + 0 5A: Test Left Arm Motor Drift - No Drift for 10 Seconds + 0 5B: Test Right Arm Motor Drift - No Drift for 10 Seconds + 0 6A: Test Left Leg Motor Drift - Drift, but doesn't hit bed + 1 6B: Test Right Leg Motor Drift - No Drift for 5 Seconds + 0 7: Test Limb Ataxia (FNF/Heel-Rojo) - No Ataxia + 0 8: Test Sensation - Mild-Moderate Loss: Less Sharp/More Dull + 1 9: Test Language/Aphasia - Normal; No aphasia + 0 10: Test Dysarthria - Normal + 0 11: Test Extinction/Inattention - No abnormality + 0 NIHSS Score: 2 Due to the immediate potential for life-threatening deterioration due to underlying acute neurologic illness, I spent 35 minutes providing critical care. This time includes time for face to face visit via telemedicine, review of medical records, imaging studies and discussion of findings with providers, the patient and/or family. Dr Laila Muñiz [facility] Case [id number] - Related Data Home Medications: Previous Rx's Medication Instructions Recorded Last Taken Type Aspirin 325 mg PO QDAY #30 tablet 10/26/19 Unknown Rx AtorvaSTATin [Lipitor] 40 mg PO QHS #30 tablet 01/01/20 Unknown Rx lisinopriL [Zestril TAB] 20 mg PO QDAY #30 tablet 01/01/20 Unknown Rx metFORMIN [Glucophage] 850 mg PO BID #60 tablet 01/01/20 Unknown Rx Allergies/Adverse Reactions: Allergies Allergy/AdvReac Type Severity Reaction Status Date / Time No Known Allergies Allergy Unverified 10/26/19 13:41 ED Review of Systems ROS: Stated complaint: LT SIDE WEAKNESS Other details as noted in HPI Constitutional: denies: chills, fever Eyes: denies: eye pain, vision change ENT: denies: ear pain, throat pain Respiratory: denies: cough, shortness of breath Cardiovascular: denies: chest pain, palpitations Gastrointestinal: denies: abdominal pain, vomiting Genitourinary: denies: dysuria, discharge Musculoskeletal: denies: back pain, arthralgia Skin: denies: rash, lesions Neurological: numbness. denies: headache, weakness ED Past Medical Hx - Past Medical History Hx Congestive Heart Failure: No Hx Diabetes: No Hx Asthma: No Hx COPD: No - Surgical History Additional Surgical History: Back - Social History Smoking Status: Former Smoker - Medications Home Medications: Home Medications Medication Instructions Recorded Confirmed Last Taken Type Aspirin 325 mg PO QDAY #30 tablet 10/26/19 Unknown Rx AtorvaSTATin [Lipitor] 40 mg PO QHS #30 tablet 01/01/20 Unknown Rx lisinopriL [Zestril TAB] 20 mg PO QDAY #30 tablet 01/01/20 Unknown Rx metFORMIN [Glucophage] 850 mg PO BID #60 tablet 01/01/20 Unknown Rx ED Neuro Physical Exam - General Limitations: No Limitations General appearance: alert Suspected Stroke: Yes - NIHSS Assessment Interval: Baseline 1a. Level of Consciousness: alert/keenly responsive 1b. LOC Questions: answers both correctly 1c. LOC Commands: performs tasks correctly 2. Best Gaze: normal 3. Visual: no visual loss 4. Facial Palsy: normal symmetrical movement 5b. Motor Arm Right: no drift 5a. Motor Arm Left: no drift 6a. Motor Leg Left: drift 6b. Motor Leg Right: no drift 7. Limb Ataxia: absent 8. Sensory: mild/moderate sensory loss 9. Best Language: no aphasia 10. Dysarthria: normal 11. Extinction/Inattention: no abnormality Total Score: 2 Stroke Severity: Minor Stroke ED Course Vital Signs 01/03/20 01/03/20 01/03/20 00:38 00:46 00:56 Temperature 98.6 F Pulse Rate 97 H Respiratory 12 16 17 Rate Blood Pressure 140/88 140/88 O2 Sat by Pulse 97 96 100 Oximetry 01/03/20 01/03/20 01:00 01:15 Temperature Pulse Rate 99 H 91 H Respiratory 13 16 Rate Blood Pressure 140/88 140/88 O2 Sat by Pulse 97 Oximetry - Lab Data Result diagrams: 01/03/20 00:57 01/03/20 00:57 Lab Results 01/03/20 01/03/20 01/03/20 Range/Units 00:57 00:57 00:57 WBC 5.2 (4.5-11.0) K/mm3 RBC 4.81 (3.65-5.03) M/mm3 Hgb 14.8 (11.8-15.2) gm/dl Hct 43.7 (35.5-45.6) % MCV 91 (84-94) fl MCH 31 (28-32) pg MCHC 34 (32-34) % RDW 12.9 L (13.2-15.2) % Plt Count 164 (140-440) K/mm3 Lymph % (Auto) 26.4 (13.4-35.0) % [place] % (Auto) 5.3 (0.0-7.3) % Eos % (Auto) 2.0 (0.0-4.3) % Baso % (Auto) 0.5 (0.0-1.8) % Lymph # 1.4 (1.2-5.4) K/mm3 [place] # 0.3 (0.0-0.8) K/mm3 Eos # 0.1 (0.0-0.4) K/mm3 Baso # 0.0 (0.0-0.1) K/mm3 Seg Neutrophils % 65.8 (40.0-70.0) % Seg Neutrophils # 3.4 (1.8-7.7) K/mm3 Sodium 136 L (137-145) mmol/L Potassium 4.7 (3.6-5.0) mmol/L Chloride 97.8 L (98-107) mmol/L Carbon Dioxide 25 (22-30) mmol/L Anion Gap 18 mmol/L BUN 11 (9-20) mg/dL Creatinine 0.6 L (0.8-1.5) mg/dL Estimated GFR > 60 ml/min BUN/Creatinine Ratio 18 % Glucose 285 H (75-100) mg/dL Calcium 9.3 (8.4-10.2) mg/dL Total Bilirubin 0.40 (0.1-1.2) mg/dL AST 8 (5-40) units/L ALT 13 (7-56) units/L Alkaline Phosphatase 93 (35-129) units/L Troponin T < 0.010 (0.00-0.029) ng/mL Total Protein 6.5 (6.3-8.2) g/dL Albumin 4.2 (3.9-5) g/dL Albumin/Globulin Ratio 1.8 % TSH 1.870 (0.270-4.200) mlU/mL Plasma/Serum Alcohol (0-0.07) % 01/03/20 Range/Units 00:57 WBC (4.5-11.0) K/mm3 RBC (3.65-5.03) M/mm3 Hgb (11.8-15.2) gm/dl Hct (35.5-45.6) % MCV (84-94) fl MCH (28-32) pg MCHC (32-34) % RDW (13.2-15.2) % Plt Count (140-440) K/mm3 Lymph % (Auto) (13.4-35.0) % [place] % (Auto) (0.0-7.3) % Eos % (Auto) (0.0-4.3) % Baso % (Auto) (0.0-1.8) % Lymph # (1.2-5.4) K/mm3 [place] # (0.0-0.8) K/mm3 Eos # (0.0-0.4) K/mm3 Baso # (0.0-0.1) K/mm3 Seg Neutrophils % (40.0-70.0) % Seg Neutrophils # (1.8-7.7) K/mm3 Sodium (137-145) mmol/L Potassium (3.6-5.0) mmol/L Chloride (98-107) mmol/L Carbon Dioxide (22-30) mmol/L Anion Gap mmol/L BUN (9-20) mg/dL Creatinine (0.8-1.5) mg/dL Estimated GFR ml/min BUN/Creatinine Ratio % Glucose (75-100) mg/dL Calcium (8.4-10.2) mg/dL Total Bilirubin (0.1-1.2) mg/dL AST (5-40) units/L ALT (7-56) units/L Alkaline Phosphatase (35-129) units/L Troponin T (0.00-0.029) ng/mL Total Protein (6.3-8.2) g/dL Albumin (3.9-5) g/dL Albumin/Globulin Ratio % TSH (0.270-4.200) mlU/mL Plasma/Serum Alcohol < 0.01 (0-0.07) % Critical care attestation.: If time is entered above; I have spent that time in minutes in the direct care of this critically ill patient, excluding procedure time. ED Disposition Clinical Impression: Stroke Disposition: PAT REG,TRIAGED-NO MSE Is pt being admited?: Yes Condition: Stable Referrals: PRIMARY CARE, [Primary Care Provider] - 3-5 Days
--- NOTE | 2020-01-03 03:41 | Cat Scan Report ---
CTA neck without and with intravenous contrast material CLINICAL HISTORY: left sided weakness/numbness TECHNIQUE: Following acquisition of a timing bolus 0.625 mm thick contiguous axial scans were obtained from aort ic arch to the skull base during rapid bolus intravenous contrast infusion. In addition to evaluation of axial source images multiplanar reconstructions were produced and reviewed for this report. 3 forest ne MIP reconstructions were produced and reviewed. FINDINGS: Thoracic aorta:No abnormalities are identified along the course of the thoracic aorta..The origins of the great vessels have an unremarkable appearance. Brachiocephalic artery, left common carotid arter y origin and left subclavian artery all have an unremarkable appearance. Right carotid artery:No abnormalities are seen along the course of the RCCA, at the right carotid bif urcation or along the cervical portions of the JOAQUÍN. Left carotid artery: No abnormalities are noted along the course of the left common carotid artery, a t the left carotid bifurcation or along the course of the cervical segments of the LICA. Posterior circulation: Both vertebral arteries are diminutive in size. There is no indication of sten osis along the course of the vertebral arteries. Both vertebral arteries contribute to the basilar ar jamil origin. The degree of stenosis, if any, is determined utilizing NASCET like criteria. In this c ase there is no indication of hemodynamically significant stenosis at the carotid bifurcations or els ewhere. Evaluation of the nonvascular soft tissue structures reveal no abnormality. There is no indication of cervical lymphadenopathy. No abnormalities are seen along the course of the airway. Visualized porti ons of the parotid glands and the submandibular salivary glands have a normal appearance. Thyroid gla nd has a normal appearance. Evaluation of the lung apices reveals no evidence of lung nodule or infil trate. Cervical spondylosis is noted. This is most pronounced at the C5-6 level where posterior osteophyte l ateralizes to the left contributing to left lateral recess stenosis and mild central canal stenosis. IMPRESSION: 1. No indication of hemodynamically significant stenosis at the carotid bifurcation or elsewhere. Contrast dose report: Omnipaque 350: 100 ml, administered intravenously All CT examinations performed at this facility utilize modulated dose reduction, iterative reconstruc tion or weight-based dosing, as appropriate, to obtain a radiation dose which is as low as can reason ably be achieved. Signer Name: Georgi Jimenez MD Signed: 01/03/2020 3:36 AM Workstation Name: [id number]
--- NOTE | 2020-01-03 03:47 | Cat Scan Report ---
CTA head with intravenous contrast CLINICAL HISTORY: Cerebrovascular accident. Left-sided weakness and numbness. TECHNIQUE: 0.625 mm thick contiguous axial scans were obtained from the skull base to the skull vertex during r apid bolus administration of intravenous contrast material. Multiplanar reconstructions were produced in the coronal and sagittal planes. In addition 3 plane MIP instructions were produced and reviewed for this report. The axial source images and reconstructed images were reviewed for this report. CONTRAST DOSE REPORT: Omnipaque 350: 100 ml administered intravenously. All CT scans at this location are performed using CT dose reduction for ALARA by means of automated e xposure control. FINDINGS: Internal carotid arteries:Ba, cavernous, opthalmic, clinoid and supraclinoid segments of the ICAs have an unremarkable appearance. Middle cerebral arteries: Bilaterally symmetrical M1 segments are noted. No abnormalities are seen al ochoa the course of the insular or opercular branches of middle cerebral arteries. Anterior cerebral arteries: Symmetrical A1 segments of the anterior cerebral arteries are demonstrate d. No abnormalities are seen along the course of the A2 segments and their pericallosal branches. Vertebral arteries: Vertebral arteries are diminutive in size. Both vertebral arteries contribute to the basilar artery origin. 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 This is due in large part due to the presence of origin of both posterior cerebral arteries. Posterior cerebral arteries: origin of the posterior cerebral arteries is noted bilaterally. Hy poplasia or developmental absence of the P1 segments is observed. Posterior cerebral arteries have a normal and symmetrical appearance. Dural sinuses: Dural venous sinuses are well demonstrated on this exam. There is no evidence of dural sinus thrombosis. IMPRESSION: 1. No indication of intracranial stenosis or large vessel occlusion. Signer Name: Georgi Jimenez MD Signed: 01/03/2020 3:42 AM Workstation Name: [id number]
[2020-01-03] MEDS ORDERED: ASPIRIN 81 MG TAB CHEW PO ONE (04:14)
[2020-01-03] MEDS ORDERED: METOCLOPRAMIDE 10 MG TAB PO PRN (04:56)
[2020-01-03] MEDS ORDERED: DEXTROSE 50% IN WATER (25GM) 50 ML SYRINGE IV PRN (04:56)
[2020-01-03] MEDS ORDERED: ACETAMINOPHEN 325 MG TAB PO PRN ×2 (04:56)
[2020-01-03] MEDS ORDERED: PROMETHAZINE 25 MG RECT SUPP PR PRN (04:56)
[2020-01-03] MEDS ORDERED: ONDANSETRON 4 MG/2 ML INJ IV PRN ×2 (04:56)
[2020-01-03] MEDS ORDERED: MAGNESIUM HYDROXIDE (MOM) ORAL LIQD UDC PO PRN (04:56)
--- NOTE | 2020-01-03 05:10 | History and Physical Report ---
History of Present Illness Date of examination: 01/03/20 Date of admission: 01/03/2020 Chief complaint: Left-sided weakness History of present illness: 49-year-old male who was just discharged from this facility less than 48 hours ago presenting to the emergency room today with left-sided weakness and numbness. Symptoms were similar to what he presented with on December 31, 2019. He had an MRI of the brain which showed subacute right thalamic infarct at the time I was feeling better when he was discharged home however he started having numbness and decreased sensation on the left side of face and body. He denies any headaches or dizziness, denies any visual disturbance, no difficulty with swallowing, no difficulty with his speech. Work-up in the emergency room including CT scan of the head still reveals right subacute infarct. Teleneurologist was consulted and recommendation was for patient to have a repeat MRI and also carotid Doppler. CT angiogram of the head and neck did not show any significant findings. Past History Past Medical History: diabetes, hypertension Past Surgical History: Other (Back surgery in the past) Social history: smoking, alcohol abuse (Occasional alcohol intake) Family history: diabetes (Mother had diabetes), stroke (Father had stroke) Medications and Allergies Allergies Allergy/AdvReac Type Severity Reaction Status Date / Time No Known Allergies Allergy Unverified 10/26/19 13:41 Home Medications Medication Instructions Recorded Confirmed Last Taken Type Aspirin 325 mg PO QDAY #30 tablet 10/26/19 Unknown Rx AtorvaSTATin [Lipitor] 40 mg PO QHS #30 tablet 01/01/20 Unknown Rx lisinopriL [Zestril TAB] 20 mg PO QDAY #30 tablet 01/01/20 Unknown Rx metFORMIN [Glucophage] 850 mg PO BID #60 tablet 01/01/20 Unknown Rx Review of Systems Constitutional: no fever, no chills Ears, nose, mouth and throat: no nasal congestion, no sore throat Cardiovascular: no chest pain, no palpitations Respiratory: no cough, no shortness of breath Gastrointestinal: no abdominal pain, no nausea, no vomiting, no diarrhea Genitourinary Male: no dysuria, no hematuria, no flank pain Musculoskeletal: no neck pain, no low back pain Integumentary: no rash, no pruritis Neurological: no headaches, no confusion Psychiatric: no anxiety, no confusion Exam - Constitutional Vitals: Temp Pulse Resp BP Pulse Ox 98.6 F 93 H 24 155/92 99 01/03/20 00:56 01/03/20 03:00 01/03/20 03:00 01/03/20 03:00 01/03/20 03:00 General appearance: Present: no acute distress, well-nourished - EENT Eyes: Present: PERRL, EOM intact ENT: hearing intact, clear oral mucosa, dentition normal - Neck Neck: Present: supple, normal ROM - Respiratory Respiratory effort: normal Respiratory: bilateral: CTA - Cardiovascular Rhythm: regular Heart Sounds: Present: S1 & S2 - Extremities Extremities: no ischemia, pulses intact, pulses symmetrical, No edema, Full ROM Peripheral Pulses: within normal limits - Abdominal General gastrointestinal: Present: soft, non-tender, non-distended, normal bowel sounds - Integumentary Integumentary: Present: clear, warm, dry - Musculoskeletal Musculoskeletal: strength equal bilaterally - Psychiatric Psychiatric: appropriate mood/affect, intact judgment & insight, cooperative - Neurologic Neurologic: CNII-XII intact, moves all extremities HEART Score - HEART Score Troponin: Troponin T < 0.010 ng/mL (0.00-0.029) 01/03/20 00:57 Results - Labs CBC & Chem 7: 01/03/20 00:57 01/03/20 00:57 Labs: Abnormal lab results 01/03/20 01/03/20 Range/Units 00:57 00:57 RDW 12.9 L (13.2-15.2) % Sodium 136 L (137-145) mmol/L Chloride 97.8 L (98-107) mmol/L Creatinine 0.6 L (0.8-1.5) mg/dL Glucose 285 H (75-100) mg/dL Assessment and Plan - Patient Problems (1) Stroke Current Visit: Yes Status: Acute Qualifiers: CVA mechanism: unspecified Qualified Code(s): I63.9 - Cerebral infarction, unspecified Plan to address problem: Patient admitted placed on telemetry. Will monitor neurological status. Patient will be placed on daily aspirin. We will schedule patient for repeat MRI and carotid Doppler. Patient had an echocardiogram during his recent hospital admission. We will request neurology evaluation and recommendation. (2) DVT prophylaxis Current Visit: No Status: Acute Plan to address problem: Patient placed on subcutaneous heparin. (3) Full code status Current Visit: No Status: Acute (4) Hyperglycemia Current Visit: No Status: Acute
[2020-01-03] MEDS: INSULIN LISPRO 100 UNIT/ML SUB-Q SCH ×3 (09:30→17:13)
[2020-01-03] MEDS ORDERED: ASPIRIN 325 MG TAB PO SCH (10:00)
--- NOTE | 2020-01-03 13:12 | Magnetic Resonance Report ---
MRI BRAIN WITHOUT CONTRAST INDICATION / CLINICAL INFORMATION: MAIN: stroke, lT SIDED WEAKNESS AND NUMBNESS. TECHNIQUE: Multisequence, multiplanar images were obtained. COMPARISON: MR brain 01/01/2020 FINDINGS: CEREBRAL and CEREBELLAR HEMISPHERES: Small focus of diffusion restriction in the lateral right thalam us is again identified but appears slightly larger on today's exam. This area of diffusion restrictio n has increased from 4 mm to 8 mm in greatest dimension. No additional areas of diffusion restriction are identified. The remaining brain parenchyma demonstrates normal signal on all sequences. The darling -white interface is well-defined. No evidence for hemorrhage, mass or mass effect. No extra-axial flu id collection. VENTRICLES: Normal in size and configuration for age. VISUALIZED ORBITS: No significant abnormality. VISUALIZED PARANASAL SINUSES: No significant abnormality. ADDITIONAL FINDINGS: None. IMPRESSION: 8 mm focus of subacute ischemia is identified in the right thalamus as described above. This focus ap pears slightly larger than on the previous MR brain dated 01/01/2020. No evidence for hemorrhage. Signer Name: Basilio Parada Jr, MD Signed: 01/03/2020 1:07 PM Workstation Name: [id number]
--- NOTE | 2020-01-03 13:15 | Event Note ---
Date: 01/03/20 Patient seen and reexamined no acute distress noted reports improvement in left upper extremity numbness except in the finger areas. Denies any positional change exacerbating the symptoms. Awaiting for full work-up and repeat neurology evaluation Will continue current treatment at this time.
[2020-01-03] MEDS ORDERED: HEPARIN 5,000 UNIT/1 ML VIAL SUB-Q SCH (14:00)
--- NOTE | 2020-01-03 14:46 | Vascular Lab Report ---
BILATERAL CAROTID DOPPLER ULTRASOUND INDICATION : stroke TECHNIQUE: Grayscale and color Doppler imaging performed through the neck. COMPARISON: None FINDINGS: Right: There is no significant atherosclerotic disease. Peak systolic velocity in the CCA is 89 cm/ s with end-diastolic velocity of 26 cm/s. Peak systolic velocity in the proximal ICA is 98 cm/s with end-diastolic velocity of 27 cm/s. ICA to CCA ratio is less than 2. There is antegrade flow in the E CA and the vertebral artery. Left: There is no significant atherosclerotic disease. Peak systolic velocity in the CCA is 87 cm/s w ith end-diastolic velocity of 26 cm/s. Peak systolic velocity in the proximal ICA is 103 cm/s with en d-diastolic velocity of 35 cm/s. ICA to CCA ratio is less than 2. There is antegrade flow in the ECA and the vertebral artery. IMPRESSION: No hemodynamically significant stenosis by NASCET criteria. Signer Name: Basilio Parada Jr, MD Signed: 01/03/2020 2:42 PM Workstation Name: [id number]
--- NOTE | 2020-01-03 17:55 | Consultation ---
History of Present Illness Consult date: 01/03/20 Reason for Consult: Stroke Chief complaint: Left sided weakness and numbness. History of present illness: Patient is a 49 y/o man w/ a h/o HTN, DM, HLD, and recent stroke w/ residual left sided numbness. Patient was recently admitted on 12/31/19 w/ symptoms of left sided numbness. During that admission, MRI was done and showed that patient had a small right thalamic infarct. Patient was send home, and was taking ASA 81mg daily. His left sided numbness had somewhat improved. However, yesterday morning, he awoke with recurrence of left sided numbness, and also noted LLE weakness. LLE weakness has now resolve, however he continues to c/o left sided numbness. Past History Past Medical History: diabetes, hypertension, other (HLD, h/o stroke) Past Surgical History: Other (Back surgery in the past) Social history: smoking (previous), alcohol abuse (Occasional alcohol intake) Family history: diabetes (Mother had diabetes), stroke (Father had stroke) Medications and Allergies Allergies Allergy/AdvReac Type Severity Reaction Status Date / Time No Known Allergies Allergy Unverified 10/26/19 13:41 Home Medications Medication Instructions Recorded Confirmed Last Taken Type Aspirin 325 mg PO QDAY #30 tablet 10/26/19 Unknown Rx AtorvaSTATin [Lipitor] 40 mg PO QHS #30 tablet 01/01/20 Unknown Rx lisinopriL [Zestril TAB] 20 mg PO QDAY #30 tablet 01/01/20 Unknown Rx metFORMIN [Glucophage] 850 mg PO BID #60 tablet 01/01/20 Unknown Rx Active Meds: Active Medications Acetaminophen (Tylenol) 650 mg PO Q4H PRN PRN Reason: Pain MILD(1-3)/Fever >100.5/[place] Aspirin (Aspirin) 325 mg PO QDAY [facility] Last Admin: 01/03/20 09:21 Dose: 325 mg Documented by: Atorvastatin Calcium (Lipitor) 40 mg PO QHS [facility] Bisacodyl (Dulcolax) 10 mg [place] QDAY PRN PRN Reason: Constipation Dextrose (D50w (25gm) Syringe) 0 ml IV Q30MIN PRN; Protocol PRN Reason: Hypoglycemia Heparin Sodium (Porcine) (Heparin) 5,000 unit SUB-Q Q8HR [facility] Last Admin: 01/03/20 15:58 Dose: 5,000 unit Documented by: Insulin Human Lispro (Humalog) 0 unit SUB-Q ACHS [facility]; Protocol Last Admin: 01/03/20 17:13 Dose: 4 unit Documented by: Magnesium Hydroxide (Milk Of Magnesia) 30 ml PO Q4H PRN PRN Reason: Constipation Metoclopramide HCl (Reglan) 10 mg PO Q6H PRN PRN Reason: Nausea And Vomiting Ondansetron HCl (Zofran) 4 mg IV Q8H PRN PRN Reason: Nausea And Vomiting Promethazine HCl (Phenergan) 25 mg [place] Q6H PRN PRN Reason: Nausea And Vomiting Sodium Chloride (Sodium Chloride Flush Syringe 10 Ml) 10 ml IV PRN PRN PRN Reason: LINE FLUSH Sodium Chloride (Sodium Chloride Flush Syringe 10 Ml) 10 ml IV BID [facility] Last Admin: 01/03/20 09:21 Dose: 10 ml Documented by: Review of Systems All systems: negative Neurological: weakness, numbness Physical Examination - Vital Signs Vital Signs: Vital Signs Resp Pulse Ox 12 97 01/03/20 00:38 01/03/20 00:38 - Physical Exam Narrative exam: Patient is alert, awake, oriented x4, follows complex commands. No dysarthria or aphasia noted. EOMI, VFF, tongue midline, decreased on Lt. face to LT, no facial weakness noted. 5/5 strength in all extremities. Bilaterally intact light touch. Bilaterally intact to FTN and HTS. 2+ reflexes throughout. - Constitutional General appearance: comfortable - EENT EENT: Present: ATNC - Level of Consciousness 1a. Level of Consciousness: alert/keenly responsive - LOC Questions 1b. LOC Questions: answers both correctly - LOC Command 1c. LOC Commands: performs tasks correctly - Best Gaze 2. Best Gaze: normal - Visual 3. Visual: no visual loss - Facial Palsy 4. Facial Palsy: normal symmetrical movement - Motor Arm 5a. Motor Arm Left: no drift 5b. Motor Arm Right: no drift - Motor Leg 6a. Motor Leg Left: no drift 6b. Motor Leg Right: no drift - Limb Ataxia 7. Limb Ataxia: absent - Sensory 8. Sensory: mild/moderate sensory loss - Best Language 9. Best Language: no aphasia - Dysarthria 10. Dysarthria: normal - Extinction and Inattention 11. Extinction/Inattention: no abnormality - Scoring Total Score: 1 Stroke Severity: Minor Stroke Results - Laboratory Findings CBC and BMP: 01/03/20 00:57 01/03/20 00:57 Abnormal Lab Findings: Abnormal Labs 01/03/20 01/03/20 01/03/20 00:57 00:57 09:32 RDW 12.9 L Sodium 136 L Chloride 97.8 L Creatinine 0.6 L Glucose 285 H POC Glucose 291 H 01/03/20 16:30 RDW Sodium Chloride Creatinine Glucose POC Glucose 295 H Assessment and Plan Patient is a 49 y/o man w/ a h/o HTN, DM, HLD, and recent stroke w/ residual left sided numbness, who p/w increased Lt. sided numbness and LLE weakness. Acco rding to the patient's clinical findings, there has been evolution of his previous stroke, as it has somewhat enlarged since previous imaging done during last admission. This may have occurred due to reduction in BP, causing infarct of ischemic penumbra. Plan: 1. Stroke: - MRI brain: Shows evolution of previous infarct in right thalamus, with enlargement in size. - CTA head/neck: B/l mechanical engineering technologist w/ distal basilar stenosis, which may be developmental in etiology due to b/l mechanical engineering technologist. - Echo: EF 60-65%, LA mildly dilated, bubble study negative. -Recommend dual antiplatelet therapy with aspirin 81 mg daily and Plavix 75 mg daily for 30 days, after which Plavix can be stopped. Discussed risks and benefits of dual antiplatelet therapy with patient, and patient agreed to take this. - Cont. statin. LDL goal <70. - Given cryptogenic etiology of stroke, would recommend long-term cardiac mo nitoring with 30-day MCOT or ILR, to be done by cardiology outpatient. - Telemetry monitoring while in house - PT/OT/ST - DVT Ppx: Recommend lovenox 2. Hypertension: - Recommend BP goal of normotension, as it has been >48 hours since symptom onset. - Recommend for patient to follow up with neurology in 3-4 weeks. - Will sign off. Please call with any questions. Thank you for allowing me to take part in the care of this patient. Marlon Goodman MD Neurology This clinical encounter was provided via live telemedicine platform. Consultative service was provided for neurology to support local providers. The Acute Teleneurology team should be contacted with any neurologic worsening or cl inical changes, new test results, or new patient history that is reported to or discovered by the local team following completion of the teleneurology consultation, specifically that which has the potential to impact the consultative recommendations. Patient/Family was informed the Neurology Consult would happen via TeleHealth consult by way of interactive audio and video telecommunications and consented to receiving care in this manner. Due to the potential for life-threatening deterioration due to underlying neurologic illness, and limited resources available for patient care, telemedicine was used as means of patient care. Telemedicine consultation is limited in the extent of physical exam that can be virtually provided. Time spent evaluating patient includes time for face to face visit via telemedicine, review of medical records, imaging studies and discussion of findings with prov iders, the patient and/or family.
--- NOTE | 2020-01-03 19:05 | Discharge Summary ---
Providers - Providers Date of Admission: 01/03/20 04:56 Attending physician: JULY THOMAS MD 01/03/20 04:56 Consult to Dietitian/Nutrition [CONS] Routine Physician Instructions: Reason For Exam: Reason for Consult: Diet education Consult to Physician [CONS] Routine Comment: Consulting Provider: ROSAURA CHAPPELL Physician Instructions: Reason For Exam: CVA Occupational Therapy Evaluate and Treat [CONS] Routine Comment: Reason For Exam: Neuro deficits Physical Therapy Evaluation and Treat [CONS] Routine Comment: Reason For Exam: Neuro deficits Primary care physician: DEDICATED DRIVER Hospitalization Reason for admission: cva Condition: Serious Hospital course: 49-year-old male who was just discharged from this facility less than 48 hours ago presenting to the emergency room today with left-sided weakness and numbness. Symptoms were similar to what he presented with on December 31, 2019. He had an MRI of the brain which showed subacute right thalamic infarct at the time I was feeling better when he was discharged home however he started having numbness and decreased sensation on the left side of face and body. He denies any headaches or dizziness, denies any visual disturbance, no difficulty with swallowing, no difficulty with his speech. Work-up in the emergency room including CT scan of the head still reveals right subacute infarct. Teleneurologist was consulted and recommendation was for patient to have a repeat MRI and also carotid Doppler. CT angiogram of the head and neck did not show any significant findings. Patient is a 49 y/o man w/ a h/o HTN, DM, HLD, and recent stroke w/ residual left sided numbness, who p/w increased Lt. sided numbness and LLE weakness. According to the patient's clinical findings, there has been evolution of his previous stroke, as it has somewhat enlarged since previous imaging done during last admission. This may have occurred due to reduction in BP, causing infarct of ischemic penumbra. ]Assessment and Plan 1. Stroke: - MRI brain: Shows evolution of previous infarct in right thalamus, with enlargement in size. - CTA head/neck: B/l rehabilitation case coordinator w/ distal basilar stenosis, which may be developmental in etiology due to b/l rehabilitation case coordinator. - Echo: EF 60-65%, LA mildly dilated, bubble study negative. -Recommend dual antiplatelet therapy with aspirin 81 mg daily and Plavix 75 mg daily for 30 days, after which Plavix can be stopped. Discussed risks and benefits of dual antiplatelet therapy with patient, and patient agreed to take this. - Cont. statin. LDL goal <70. - Given cryptogenic etiology of stroke, would recommend long-term cardiac monitoring with 30-day MCOT or ILR, to be done by cardiology outpatient. - Telemetry monitoring while in house - PT/OT/ST - DVT Ppx: Recommend lovenox 2. Hypertension: - Recommend BP goal of normotension, as it has been >48 hours since symptom onset. - Recommend for patient to follow up with neurology in 3-4 weeks. - MANAGEMENT WAS ABOVE. Cardiac monitoring was recommended and to follow with cardiology. Patient was discharged with added medication adjustment and while i wanted to monitor him for one more day, he wanted to be discharged. Disposition: TO HOME OR SELFCARE Time spent for discharge: 35 mins Core Measure Documentation - Palliative Care Palliative Care/ Comfort Measures: Not Applicable - Core Measures Any of the following diagnoses?: none Exam - Constitutional Vitals: Temp Pulse Resp BP Pulse Ox 98.2 F 88 18 142/91 97 01/03/20 08:22 01/03/20 17:00 01/03/20 11:01 01/03/20 08:22 01/03/20 08:22 General appearance: Present: no acute distress, well-nourished - EENT Eyes: Present: PERRL ENT: hearing intact - Neck Neck: Present: supple, normal ROM - Respiratory Respiratory effort: normal - Cardiovascular Rhythm: regular Heart Sounds: Present: S1 & S2, systolic murmur - Extremities Extremities: no ischemia, pulses intact, No edema, Full ROM Peripheral Pulses: within normal limits - Abdominal General gastrointestinal: Present: soft, non-tender, non-distended, normal bowel sounds - Integumentary Integumentary: Present: clear, warm - Musculoskeletal Musculoskeletal: left sided weakness - Psychiatric Psychiatric: appropriate mood/affect, intact judgment & insight, memory intact, cooperative - Neurologic Neurologic: CNII-XII intact - Allied Health Allied health notes reviewed: nursing Plan Activity: advance as tolerated, fall precautions Diet: low fat Special Instructions: record daily weights, record daily BP diary Additional Instructions: PCP to recommend cardiology. Patient did not want a referal wants to discuss with his Insurance Follow up with: PRIMARY CAREMD [Primary Care Provider] - 3-5 Days STEFAN VILLA MD [Staff Physician] - 7 Days Prescriptions: Aspirin EC [Halfprin EC] 81 mg PO QDAY #30 tablet Clopidogrel [Plavix] 75 mg PO QDAY #30 tablet
[2020-01-03 20:11] VITALS: BP 146/100
[2020-01-04] MEDS ORDERED: CLOPIDOGREL 75 MG TAB PO SCH (10:00)
[2020-01-04] MEDS ORDERED: ASPIRIN EC 81 MG TAB PO SCH (10:00)
== END 2020-01-03 19:55 | disposition home or self-care (01) ==
LOC: ED 00:18 → 4A 04:56 → INTOOBSV 04:56
PROVIDERS: ADMIT Internal Medicine Geriatric Medicine; ATTEND Internal Medicine
DX: I63.9 Cerebral infarction, unspecified (principal); E11.65 Type 2 diabetes mellitus with hyperglycemia; I10 Essential (primary) hypertension; Z87.891 Personal history of nicotine dependence; Z79.82 Long term (current) use of aspirin; Z79.84 Long term (current) use of oral hypoglycemic drugs; Z79.899 Other long term (current) drug therapy
CPT/HCPCS: 36415; 70450; 70496; 70498; 70551; 80053; 82962; 84443; 84484; 85025; 93005; 93880; 96372; 97162; 99291; G0378; J1644; Q9967; 80320; G0480